=== PATIENT | male | born 1960 | race Caucasian/White ===

== ENCOUNTER 2019-03-24 11:55 | Day surgery (SDC) | payer BC ==
[~2019-03-24] VITALS: Ht 182.9 cm; Wt 83.2 kg
[2019-03-24] MEDS ORDERED: ALPR.25 (12:52)
[2019-03-24] MEDS ORDERED: BUPR150ER (12:53)
--- NOTE | 2019-03-24 16:25 | NUR ---
03/24/19 2294 Polly Bland PT. INSTRUCTED HAD TALKED TO HIM IN THE ENDO ROOM. PT. DIDN'T REMEMBER ASKING QUESTIONS. PT. INSTRUCTED THAT 3 POLYPS WERE REMOVED & WOULD CALL HIM IN A WEEK WITH RESULTS & WHEN TO COME BACK FOR HIS NEXT COLONOSCOPY.
== END 2019-03-24 14:33 | disposition home or self-care (01) ==
LOC: ORSCSDS 11:55
PROVIDERS: Internal Medicine Gastroenterology
PROC: 0DBK8ZX Excision of Ascending Colon, Via Natural or Artificial Opening Endoscopic, Diagnostic (ICD-10-PCS; principal; 2019-03-24 13:15)
PROC: 0DBL8ZX Excision of Transverse Colon, Via Natural or Artificial Opening Endoscopic, Diagnostic (ICD-10-PCS; principal; 2019-03-24 13:15)
DX: Z12.11 Encounter for screening for malignant neoplasm of colon (principal); D12.3 Benign neoplasm of transverse colon; D12.2 Benign neoplasm of ascending colon; K57.30 Diverticulosis of large intestine without perforation or abscess without bleeding; K64.8 Other hemorrhoids; Z87.891 Personal history of nicotine dependence; Z79.899 Other long term (current) drug therapy
CPT/HCPCS: 88305; J2704; J7120

== ENCOUNTER 2024-10-03 08:00 | Emergency (ER) | payer OTHER ==
[~2024-10-03] VITALS: Ht 182.9 cm; Wt 81.7 kg
[~2024-10-03 08:00] MED LIST: ALPR.25; BUPR150ER
[2024-10-03] MEDS ORDERED: Ondansetron HCl 2 MG / ML 2ML Vial IV ONE (08:25)
[2024-10-03] MEDS ORDERED: NS 1,000 ML IV SCH (08:25)
[2024-10-03 08:33] LABS: BASOPHILS ABSOLUTE AUTO 0.05 K/mm3 (0.00-0.23); BASOPHILS PERCENT AUTO 0 % (0-2); EOSINOPHILS ABSOLUTE AUTO 0.03 K/mm3 (0.00-0.68); EOSINOPHILS PERCENT AUTO 0 % (0-6); Hemoglobin 15.5 g/dL (13.5-17.5); IMMATURE GRAN ABSOLUTE AUTO 0.04 K/mm3 (0.00-0.10); IMMATURE GRAN PERCENT AUTO 0 % (0-1); LYMPHOCYTES ABSOLUTE AUTO 1.33 K/mm3 (0.84-5.20); LYMPHOCYTES PERCENT AUTO 12 % (21-46); MONOCYTES ABSOLUTE AUTO 0.54 K/mm3 (0.16-1.47); MONOCYTES PERCENT AUTO 5 % (4-13); Mean Corpuscular HGB 31.6 pg (26.0-34.0); Mean Corpuscular HGB Conc 35.2 g/dL (31.5-36.5); Mean Corpuscular Volume 90 fL (80-100); NEUTROPHILS ABSOLUTE AUTO 9.52 K/mm3 (1.96-9.15); NEUTROPHILS PERCENT AUTO 83 % (41-73); Platelet Count 268 K/mm3 (150-400); RDW Coefficient Variation 11.8 % (11.7-14.2); RDW Standard Deviation 38.5 fL (35.1-46.3); White Blood Cell Count 11.51 K/mm3 (4.00-11.30)
[2024-10-03] MEDS ORDERED: Metoclopramide HCl 5MG / ML 2ML Vial IV ONE (08:50)
[2024-10-03 09:01] LABS: Albumin, Blood 4.2 g/dL (3.4-5.0); Albumin/Globulin Ratio 1.2 (0.8-1.8); Bilirubin, Total 0.5 mg/dL (0.1-1.0); Calcium, Blood 9.7 mg/dL (8.5-10.1); Creatinine, Blood 0.82 mg/dL (0.60-1.20); Globulin, Blood 3.5 g/dL (2.2-4.0); Total Protein, Blood 7.7 g/dL (6.4-8.2)
[2024-10-03] MEDS ORDERED: Droperidol 5 mg/2 ml Vial IV ONE (09:20)
[2024-10-03 09:40] LABS: Influenza A, PCR NEGATIVE (NEGATIVE); Influenza B, PCR NEGATIVE (NEGATIVE); Resp Syncytial Virus, PCR NEGATIVE (NEGATIVE); SARS-Cov-2 (COVID-19) PCR, MMC NEGATIVE (NEGATIVE)
[2024-10-03 10:27] LABS: U Amphetamine Screen Not Detected; U Barbituate Screen Not Detected; U Benzodiazapine Screen Not Detected; U Buprenorphine Screen Not Detected; U Cannabinoids Screen DETECTED; U Cocaine Screen Not Detected; U Methadone Screen Not Detected; U Methamphetamine Screen Not Detected; U Opiates Screen Not Detected; U Oxycodone Screen Not Detected; U Phencyclidine Screen Not Detected
[2024-10-03] MEDS ORDERED: ONDA4ODT MM (11:14)
[2024-10-03 11:35] VITALS: BP 124/85
== END 2024-10-03 11:30 | disposition home or self-care (01) ==
LOC: ER 08:00
PROVIDERS: Emergency Medicine; Student in an Organized Health Care Education/Training Program
DX: R07.9 Chest pain, unspecified (principal); R11.2 Nausea with vomiting, unspecified; R10.9 Unspecified abdominal pain
CPT/HCPCS: 0241U; 71045; 80053; 84484; 85025; 93005; 93010; 96374; 96375; 99284-25; J2405; J2765; J7030

== ENCOUNTER 2025-01-24 07:21 | Emergency (ER) | payer OTHER ==
[~2025-01-24] VITALS: Ht 182.9 cm; Wt 81.7 kg
[~2025-01-24 07:21] MED LIST changes: +ONDA4ODT MM
[2025-01-24] MEDS ORDERED: PREGABALIN50 MG PO (07:45)
[2025-01-24] MEDS ORDERED: CYMBALTA30 M2 PO (07:45)
[2025-01-24] MEDS ORDERED: PRAMIPEXOLE0.125 M1 PO (07:46)
[2025-01-24] MEDS ORDERED: ROPINIROLE HC0.2510 PO (07:46)
[2025-01-24] MEDS ORDERED: Atarax10 MG (07:46)
[2025-01-24] MEDS ORDERED: ROSUVASTATIN CAL5 MG PO (07:46)
[2025-01-24] MEDS ORDERED: OxyCODONE 7.5 mg/Acetam 325 mg TABLET PO ONE (08:05)
[2025-01-24] MEDS ORDERED: Diphth,Pertuss(Acell),Tet Vac 0.5 ML VIAL IM ONE (08:10)
[2025-01-24 08:30] VITALS: BP 109/68
[2025-01-24] MEDS ORDERED: Percocet 5-3251 EACH PO (11:03)
[2025-01-24] MEDS ORDERED: AMOCLA875 PO (11:03)
== END 2025-01-24 17:31 | disposition home or self-care (01) ==
LOC: ER 07:21
DX: S61.411A Laceration without foreign body of right hand, initial encounter (principal); E78.5 Hyperlipidemia, unspecified; W01.0XXA Fall on same level from slipping, tripping and stumbling without subsequent striking against object, initial encounter; Z23 Encounter for immunization; Z79.899 Other long term (current) drug therapy
CPT/HCPCS: 12002; 73130; 90471; 90715; 99283-25; A9270

== ENCOUNTER 2025-07-30 10:30 | Day surgery (SDC) | payer OTHER ==
[~2025-07-30] VITALS: Ht 182.9 cm; Wt 79.1 kg
[~2025-07-30 10:30] MED LIST changes: +AMOCLA875 PO; +Atarax10 MG; +CYMBALTA30 M2 PO; +Glycopyrrolate 0.2 MG/ML 1MLVIAL ONE; +Ondansetron HCl 2 MG / ML 2ML Vial ONE; +PRAMIPEXOLE0.125 M1 PO; +PREGABALIN50 MG PO; +Percocet 5-3251 EACH PO; +ROPINIROLE HC0.2510 PO; +ROSUVASTATIN CAL5 MG PO; +ePHEDrine Sulfate 50 MG/ML 1ML Injection ONE
--- NOTE | 2025-07-30 14:04 | NUR ---
07/30/[address] TO [facility]
[2025-07-30 15:29] VITALS: BP 108/83
== END 2025-07-30 15:27 | disposition home or self-care (01) ==
LOC: ORSCSDS 10:30
PROVIDERS: Internal Medicine Gastroenterology
PROC: 0DJD8ZZ Inspection of Lower Intestinal Tract, Via Natural or Artificial Opening Endoscopic (ICD-10-PCS; principal; 2025-07-30 12:00)
DX: Z12.11 Encounter for screening for malignant neoplasm of colon (principal); K64.4 Residual hemorrhoidal skin tags; Z86.0101 Personal history of adenomatous and serrated colon polyps; Z87.891 Personal history of nicotine dependence
CPT/HCPCS: J0461; J2003; J2405; J2704; J7120